=== PATIENT | male | born 1945 | race Caucasian/White ===

== ENCOUNTER 2020-10-24 14:28 | Emergency (ER) | payer MEDICARE, OTHER ==
[2020-10-24 15:07] LABS: BASOPHIL 1.2 % (0-2); EOSINOPHIL 1.5 % (0-7); HCT 46.8 % (42.0-52.0); HGB 15.5 g/dl (13.2-18.0); LYMPHOCYTE 14.1 % (15-48); MCH 28.7 pg (25.0-31.0); MCHC 33.1 g/dL (32.0-36.0); MCV 86.7 fL (78.0-100.0); MPV 10.3 fL (6.0-9.5); NEUTROPHIL 72.2 % (41-80); NRBC 0; PLT 697 K/uL (150-400); RDW 17.1 % (11.5-14.0); WBC 14.8 K/uL (4.0-10.5)
[2020-10-24 15:08] LABS: BILIRUBIN - TOTAL 0.4 mg/dL (0.2-1.0); BUN/CREAT RATIO (CALC) 14.6 RATIO; CREATININE 1.58 mg/dL (0.67-1.17); GLOBULIN (CALCULATION) 3.4 g/dL; POTASSIUM 4.8 mmol/L (3.5-5.1); TOTAL PROTEIN 7.4 g/dL (6.4-8.2)
[2020-10-24 15:11] LABS: INR 1.1 (0.9-1.2); PROTHROMBIN TIME 13.5 SECONDS (11.4-13.6)
[2020-10-24 15:12] LABS: PTT 35.9 SECONDS (22.2-34.7)
[2020-10-24 15:18] LABS: CKMB <0.5 ng/mL (0.0-3.6)
[2020-10-24] MEDS ORDERED: NITROQUIK SL0.4 MG SL (16:23)
== END 2020-10-24 16:41 | disposition home or self-care (01) ==
LOC: FER 14:28
PROVIDERS: Emergency Medicine
DX: R07.9 Chest pain, unspecified (principal); R06.02 Shortness of breath; F17.200 Nicotine dependence, unspecified, uncomplicated; E78.5 Hyperlipidemia, unspecified; Z79.899 Other long term (current) drug therapy
CPT/HCPCS: 36415; 71046; 80053; 82553; 84484; 85025; 85610; 85730; 93005